=== PATIENT | female | born 1955 | race Caucasian/White ===

== ENCOUNTER 2016-11-19 07:19 | Day surgery (SDC) | payer BC ==
[~2016-11-19] VITALS: Ht 160 cm; Wt 59.1 kg
[2016-11-19 07:37] VITALS: BP 125/83; PULSE 54; TEMP 97.6
[2016-11-19] MEDS ORDERED: ASPIRIN 81M81 MG/TA2 PO (07:59)
[2016-11-19 09:06] VITALS: BP 109/75; PULSE 57; TEMP 97.6
[2016-11-19 09:21] VITALS: BP 99/70; PULSE 57; TEMP 97.6
[2016-11-19 09:42] VITALS: BP 111/80; PULSE 60; TEMP 97.6
[2016-11-19 16:42] VITALS: BP 98/67; PULSE 57
== END 2016-11-19 09:48 | disposition home or self-care (01) ==
LOC: SDCO 07:19
DX: Z83.71 Family history of colonic polyps (principal); Z90.710 Acquired absence of both cervix and uterus; Z85.3 Personal history of malignant neoplasm of breast
CPT/HCPCS: J2250; J3010; J7030